=== PATIENT | female | born 1995 | race African-American/Black ===

== ENCOUNTER 2017-02-26 17:06 | Emergency (ER) | payer OTHER ==
[~2017-02-26] VITALS: Ht 167.6 cm; Wt 76.6 kg
[2017-02-26 17:07] VITALS: BP 136/85
[2017-02-26] MEDS ORDERED: IBUP80TA PO (17:17)
[2017-02-26] MEDS ORDERED: ACET50TAOT PO (17:29)
[2017-02-26] MEDS ORDERED: CLEO300C2 PO (17:30)
[2017-02-26] MEDS ORDERED: NAPROXEN 250 MG TAB PO ONE (17:30)
[2017-02-26] MEDS ORDERED: CLINDAMYCIN 150 MG CAP PO ONE (17:30)
== END 2017-02-26 18:06 | disposition home or self-care (01) ==
LOC: M ED 17:39
DX: L03.211 Cellulitis of face (principal); F17.210 Nicotine dependence, cigarettes, uncomplicated

== ENCOUNTER 2017-08-25 16:16 | Emergency (ER) | payer OTHER ==
[~2017-08-25] VITALS: Ht 167.6 cm; Wt 75.0 kg
[~2017-08-25 16:16] MED LIST: ACET50TAOT PO; CLEO300C2 PO; IBUP80TA PO
[2017-08-25] MEDS ORDERED: NITR100C2 (16:22)
[2017-08-25] MEDS ORDERED: METOCLOPRAMIDE INJ 10MG/2ML VIAL (J2765) IV ONE (17:00)
[2017-08-25] MEDS ORDERED: NS 1,000 ML IV ONE (17:00)
[2017-08-25] MEDS ORDERED: diphenhydrAMINE INJ 50MG/ML VIAL (J1200) IV ONE (17:00)
[2017-08-25 17:17] LABS: MUCUS, URINE RFX SMALL (NEGATIVE); SPECIFIC GRAVITY UR AUTO RFX 1.024 (1.002-1.035); SQUAM EPITHELIAL CELL UR AURFX 1 /HPF (0-6)
[2017-08-25 17:22] LABS: BASO % 0.4 % (0.0-1.0); EOS % 0.2 % (0.0-3.0); IMMATURE GRANULOCYTE % 0.4 % (0-0); LYMPH # 1.1 10^3/uL (1.5-6.5); LYMPH % 11.8 % (24.0-44.0); MEAN CORPUSCULAR HGB CONC 33.6 g/dl (32.0-36.5); MEAN CORPUSCULAR VOLUME 80.4 fl (80.0-96.0); MONO # 0.6 10^3/uL (0.0-0.8); NEUTROPHILS # 7.7 10^3/uL (1.8-7.7); NEUTROPHILS % 81.2 % (36.0-66.0); PLATELET COUNT, AUTOMATED 223 10^3/uL (150-450); RED CELL DISTRIBUTION WIDTH 14.3 % (11.5-14.5); WHITE BLOOD COUNT 9.5 10^3/uL (4.0-10.0)
[2017-08-25 17:39] LABS: ALBUMIN 4.2 GM/DL (3.2-5.2); ALBUMIN/GLOBULIN RATIO 1.08 (1.00-1.93); ALKALINE PHOSPHATASE 56 U/L (45-117); ALT/SGPT 23 U/L (12-78); ANION GAP 9 MEQ/L (8-16); AST/SGOT 14 U/L (7-37); BILIRUBIN,DIRECT 0.1 MG/DL (0.0-0.2); BILIRUBIN,TOTAL 0.3 MG/DL (0.2-1.0); BLOOD UREA NITROGEN 6 MG/DL (7-18); CALCIUM LEVEL 8.8 MG/DL (8.5-10.1); CARBON DIOXIDE LEVEL 24 MEQ/L (21-32); CHLORIDE LEVEL 104 MEQ/L (98-107); CREATININE FOR GFR 0.43 MG/DL (0.55-1.02); GLUCOSE, FASTING 77 MG/DL (70-105); POTASSIUM SERUM 3.7 MEQ/L (3.5-5.1); SODIUM LEVEL 137 MEQ/L (136-145); TOTAL PROTEIN 8.1 GM/DL (6.4-8.2)
--- NOTE | 2017-08-25 17:55 | REP ---
Clinical: Dating and viability. Technique: First trimester obstetrical ultrasound using curved array transducer with color Doppler evaluation. Findings: Single live early intrauterine is appreciated. Gestational sac with yolk sac and pole identified. [place]-rump length of 48 mm corresponds to 11 weeks 4 days gestational age with estimated date of delivery 03/12/2018 . heart rate equals 155 beats per minute. No gross abnormalities are identified. Impression: Single live early intrauterine at 11 weeks 4 days gestational age. Complete anatomical assessment should be performed and 19-20 weeks. Signed by Matthew Matt MD 08/25/2017 05:47 P
[2017-08-25] MEDS ORDERED: REGL10TA6 PO (17:57)
[2017-08-25 18:35] VITALS: BP 115/62
== END 2017-08-25 18:36 | disposition home or self-care (01) ==
LOC: M ED 16:16
DX: O21.0 Mild hyperemesis gravidarum (principal); Z3A.11 11 weeks gestation of pregnancy
CPT/HCPCS: 76801; 80048; 80076; 81001; 83690; 84702; 85025; 86901; 87086; 96361; 96374; 96375; 99284; J1200; J2765

== ENCOUNTER 2018-03-12 04:29 | Outpatient (CLI) | payer OTHER | END 2018-03-12 06:10 | disposition home or self-care (01) | LOC: M LDO 04:29 | DX: O47.1 False labor at or after 37 completed weeks of gestation (principal); Z3A.39 39 weeks gestation of pregnancy | CPT/HCPCS: 59025 ==

== ENCOUNTER 2018-03-15 02:29 | Inpatient (IN) | payer OTHER ==
[2018-03-15] MEDS ORDERED: OXYTOCIN 30 UNITS IN 0.9% NaCl 500ML IV BAG (J2590) As Ordered (05:52)
[2018-03-15] MEDS: PENICILLIN G POTASSIUM IV 5 MU in D5W MINI-BAG PLUS 100 ML IV (05:59)
[2018-03-15] MEDS: LR 1,000 ML IV ×2 (05:59→10:06)
[2018-03-15] MEDS: PROMETHAZINE INJ 25 MG/ML VIAL (J2550) IV (06:00)
[2018-03-15] MEDS: BUTORPHANOL 2 MG/ML INJ (J0595) IV (06:00)
[2018-03-15 06:06] LABS: HEMATOCRIT 37.3 % (36.0-47.0); HEMOGLOBIN 12.4 g/dl (12.0-15.5); MEAN CORPUSCULAR HEMOGLOBIN 27.8 pg (27.0-33.0); MEAN CORPUSCULAR HGB CONC 33.2 g/dl (32.0-36.5); MEAN CORPUSCULAR VOLUME 83.6 fl (80.0-96.0); PLATELET COUNT, AUTOMATED 192 10^3/uL (150-450); RED BLOOD COUNT 4.46 10^6/uL (4.00-5.40); RED CELL DISTRIBUTION WIDTH 14.5 % (11.5-14.5); WHITE BLOOD COUNT 12.1 10^3/uL (4.0-10.0)
[2018-03-15] MEDS: PENICILLIN G POTASSIUM IV 2.5 MU in APPROPRIATE DILUENT 1 EA IV ×2 (10:06→15:35)
[2018-03-15] MEDS: LACTATED RINGER'S 1000 ML IV (10:18)
[2018-03-15] MEDS ORDERED: FENTANYL 2MCG/ML ROPIVACAINE 0.2% IN 0.9% NACL 200ML IVBAG As Ordered (10:29)
[2018-03-15] MEDS ORDERED: NALOXONE INJ 0.4 MG/1 ML VIAL (J2310) IV (12:45)
[2018-03-15] MEDS ORDERED: diphenhydrAMINE INJ 50MG/ML VIAL (J1200) IV (12:45)
[2018-03-15] MEDS ORDERED: REFRIGERATOR IV KEYS XX (12:45)
[2018-03-15] MEDS ORDERED: ePHEDrine SULFATE 25 MG/5 ML(5MG/ML) SYRINGE IV (12:45)
[2018-03-15] MEDS ORDERED: FENTANYL/ROPIVACAINE/NACL BAG 200 ML EPIDURAL (12:45)
[2018-03-15] MEDS ORDERED: ONDANSETRON 4MG/2ML VIAL (J2405) IV ×2 (12:45→18:00)
[2018-03-15] MEDS ORDERED: EPIDURAL/PCA KEYS XX (12:45)
[2018-03-15] MEDS ORDERED: EPIDURAL COMMENT XX (12:45)
[2018-03-15] MEDS: OXYTOCIN DRIP 30 UNITS in APPROPRIATE DILUENT 1 EA IV (17:55)
[2018-03-15] MEDS ORDERED: DIBUCAINE 1% OINTMENT 30GM TOP (18:00)
[2018-03-15] MEDS ORDERED: MEASLES,MUMPS,RUBELLA VACCINE INJ (MMR-II) (90707) SC (18:00)
[2018-03-15] MEDS ORDERED: ACETAMINOPHEN 500 MG TAB PO (18:00)
[2018-03-15] MEDS ORDERED: RHOGAM 300 MCG (1500 IU) INJ (J2790) IM (18:00)
[2018-03-15] MEDS ORDERED: METHYLERGONOVINE MALEATE 0.2 MG/ML VIAL (J2210) IM (18:00)
[2018-03-15] MEDS ORDERED: PROMETHAZINE 25 MG TAB PO (18:00)
[2018-03-15] MEDS: DOCUSATE SODIUM 100 MG CAP PO (21:40)
[2018-03-16] MEDS: IBUPROFEN 800 MG TAB PO (05:44)
[2018-03-16] MEDS: DOCUSATE SODIUM 100 MG CAP PO ×2 (08:02→19:58)
[2018-03-16] MEDS: PRENATAL VITAMINS CHEWABLE TABLET PO (08:02)
[2018-03-17] MEDS: IBUPROFEN 800 MG TAB PO (04:59)
[2018-03-17] MEDS: DOCUSATE SODIUM 100 MG CAP PO (08:08)
[2018-03-17] MEDS: PRENATAL VITAMINS CHEWABLE TABLET PO (08:09)
== END 2018-03-17 15:45 | disposition home or self-care (01) | DRG 775 ==
LOC: M LDO 02:29 → M LDI 05:33 → M OBS 18:49
PROVIDERS: Obstetrics & Gynecology
PROC: 10E0XZZ Delivery of Products of Conception, External Approach (ICD-10-PCS; principal; 2018-03-15)
PROC: 0HQ9XZZ Repair Perineum Skin, External Approach (ICD-10-PCS; 2018-03-15)
DX: O48.0 Post-term pregnancy (principal); Z37.0 Single live birth; Z3A.40 40 weeks gestation of pregnancy; O99.824 Streptococcus B carrier state complicating childbirth; O70.0 First degree perineal laceration during delivery